=== PATIENT | male | born 1955 | race Two or more races ===

== ENCOUNTER 2018-02-11 20:52 | Emergency (ER) | payer BC ==
--- NOTE | 2018-02-11 20:55 | ER Document Report ---
ED Medical Screen (RME) - General Stated Complaint: FACIAL DROOP Time Seen by Provider: 02/11/18 20:53 Mode of Arrival: Ambulatory Information source: Patient Notes: PT PRESENTS WITH LEFT SIDED FACIAL DROOP FOR OVER A WEEK. SUSPECT BELLS PALSY
[2018-02-12] MEDS ORDERED: ACYCLOVIR 200 MG CAPSULE PO ONE (01:43)
[2018-02-12] MEDS ORDERED: PREDNISONE 20 MG TABLET PO ONE (01:43)
--- NOTE | 2018-02-12 01:47 | ER Document Report ---
ED General - General Chief Complaint: Facial Droop Stated Complaint: FACIAL DROOP Time Seen by Provider: 02/11/18 20:53 Mode of Arrival: Ambulatory Notes: Patient is a 62-year-old male that comes to the emergency department for chief complaint of numbness to the left side of his face, this started about 1 week ago, he reports a dry eye on the left side intermittently as well although he can still close it fully when he sleeps. He denies any numbness or weakness other than in his face, denies headache, denies fever. He does have primary care at home, [place]. TRAVEL OUTSIDE OF THE [place] IN LAST 30 DAYS: No - Related Data Allergies/Adverse Reactions: No Known Allergies Allergy (Unverified 02/12/18 02:48) Past Medical History - General Information source: Patient - Social History Smoking Status: Never Smoker Frequency of alcohol use: None Drug Abuse: None Lives with: Family Family History: Reviewed & Not Pertinent - Immunizations Hx Diphtheria, Pertussis, Tetanus Vaccination: Yes Review of Systems - Review of Systems Constitutional: No symptoms reported EENT: No symptoms reported Cardiovascular: No symptoms reported Respiratory: No symptoms reported Gastrointestinal: No symptoms reported Genitourinary: No symptoms reported Male Genitourinary: No symptoms reported Musculoskeletal: No symptoms reported Skin: No symptoms reported Hematologic/Lymphatic: No symptoms reported Neurological/Psychological: See HPI Physical Exam - Vital signs Vitals: Temp Pulse Resp BP Pulse Ox 97.9 F 74 20 155/96 H 97 02/11/18 20:56 02/11/18 20:56 02/11/18 20:56 02/11/18 20:56 02/11/18 20:56 - Notes Notes: GENERAL: Alert, interacts well. No acute distress. HEAD: Normocephalic, atraumatic. EYES: Pupils equal, round, and reactive to light. Extraocular movements intact. ENT: Oral mucosa moist, tongue midline. NECK: Full range of motion. Supple. Trachea midline. LUNGS: Clear to auscultation bilaterally, no wheezes, rales, or rhonchi. No respiratory distress. HEART: Regular rate and rhythm. No murmur ABDOMEN: Soft, non-tender. Non-distended. Bowel sounds present in all 4 quadrants. EXTREMITIES: Moves all 4 extremities spontaneously. No edema, normal radial and dorsalis pedis pulses bilaterally. No cyanosis. BACK: no cervical, thoracic, lumbar midline tenderness. No saddle anesthesia, normal distal neurovascular exam. NEUROLOGICAL: Alert and oriented. Clear speech. There is paralysis of the forehead, obvious facial droop with inability to lift the left side of the mouth , numbness over the left side of the face, difficulty closing the left eyelid. Otherwise cranial nerves intact. PSYCH: Normal affect, normal mood. SKIN: Warm, dry, normal turgor. No rashes or lesions noted. Course - Re-evaluation Re-evalutation: Inability to raise left eyebrow, paralysis of the facial nerve noted, otherwise his neurological exam is normal. I did review the CAT scan performed in triage , this shows no acute findings. 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 Unfortunately patient is 1 week into symptoms, I discussed with patient , after discussion he still wants to have the treatment. Because of the degree of paralysis patient will be placed on both antiviral and prednisone. Discussed recommendations, follow-up, and return precautions. Patient states satisfaction and agreement. - Vital Signs Vital signs: Temp Pulse Resp BP Pulse Ox 97.9 F 64 16 144/88 H 96 02/12/18 03:13 02/12/18 03:13 02/12/18 03:13 02/12/18 03:14 02/12/18 03:13 Discharge - Discharge Clinical Impression: Numbness and tingling of left side of face, Facial droop, Wren's palsy Condition: Stable Disposition: HOME, SELF-CARE Additional Instructions: The CAT scan performed does not show any concerning abnormalities. Your examination is consistent with Wren's palsy. Take treatment regimen as prescribed, follow-up with primary care for additional management. I recommend that you additionally use lubricating eyedrops [id number] as needed because of the eyelid paralysis. Return if you worsen including weakness on one side of your body, severe headache, or any other concerning symptoms. Prescriptions: Acyclovir [Acyclovir 400 mg Tablet] 400 mg PO ASDIR PRN #50 tablet PRN Reason: Prednisone 60 mg PO DAILY #18 tablet
--- NOTE | 2018-02-12 02:21 | RADIOLOGY REPORT (SQ) ---
EXAM DESCRIPTION: CT HEAD WITHOUT IV CONTRAST COMPLETED DATE/TME: 02/12/2018 00:00 CLINICAL HISTORY: facial droop COMPARISON: None available TECHNIQUE: Axial CT of the head obtained from the skull apex to the skull base without contrast. FINDINGS: No acute intracranial hemorrhage identified. No mass, mass effect, shift of the midline, abnormal extra-axial fluid collection or CT evidence of acute ischemic change identified. The ventricular system is unremarkable. No acute abnormalities of the supratentorial white matter, basal ganglia, cerebellum, or brainstem. The visualized paranasal sinuses and the mastoids are clear. No skull fracture identified. Visualized orbits and globes are unremarkable. DLP:1043.77 mGy-cm IMPRESSION: 1. No acute intracranial abnormality identified. This exam was performed according to our departmental dose-optimization program, which includes automated exposure control, adjustment of the mA and/or kV according to patient size and/or use of iterative reconstruction technique.
[2018-02-12 03:14] VITALS: BP 144/88
== END 2018-02-12 03:14 | disposition home or self-care (01) ==
LOC: ER 20:52
DX: G51.0 Bell's palsy (principal)
CPT/HCPCS: 99284; 70450; J7512